=== PATIENT | female | born 1980 | race African-American/Black ===

== ENCOUNTER 2016-11-11 09:55 | Inpatient (IN) | payer OTHER ==
[~2016-11-11] VITALS: Ht 157.5 cm; Wt 58.2 kg
[2016-11-11 11:34] LABS: ADD UMIC YES; UR ASCORBIC ACID NEGATIVE (NEGATIVE); UR BACTERIA FEW /HPF (NONE SEEN); UR BILIRUBIN (Dip) NEGATIVE (NEGATIVE); UR BLOOD (Dip) 3+ mg/dL (NEGATIVE); UR CLARITY CLEAR (CLEAR); UR COLOR COLORLESS (YELLOW); UR GLUCOSE (Dip) NEGATIVE (NEGATIVE); UR KETONES (Dip) TRACE mg/dL (NEGATIVE); UR LEUKOCYTE ESTERASE (Dip) NEGATIVE Leu/ul (NEGATIVE); UR NITRITE (Dip) NEGATIVE (NEGATIVE); UR RBC 2 /HPF (0-5); UR SPECIFIC GRAVITY (Dip) 1.003 (1.003-1.030); UR TOTAL PROTEIN (Dip) NEGATIVE (NEGATIVE); UR UROBILINOGEN (Dip) NEGATIVE (NEGATIVE)
--- NOTE | 2016-11-11 11:40 | RADRPT ---
PROCEDURE: OBSTETRICAL ULTRASOUND WITH ENDOVAGINAL IMAGES CLINICAL INDICATION: Vaginal Bleed () TECHNIQUE: Multiple sonographic images of the pelvis were obtained utilizing a transabdominal and endovaginal technique. The images were reviewed on a PACS workstation. COMPARISON: None. LMP: 10/07/2016 FINDINGS: The uterus measures 15.9 x 10.6 x 12.0 cm. A small cystic lesion measuring up to 1.1 cm in diameter is identified in the endometrium at the lev el of the fundal apex which may be a gestational sac. No yolk sac or pole is identified withi n it. Bilateral ovaries are not visualized. There are no abnormal adnexal masses. No significant pelvic free fluid is identified. IMPRESSION: A possible intrauterine gestational sac is identified without a yolk sac or pole. Findings may be due to an early intrauterine although an ectopic cannot be entirely exclu ded. Short-term follow-up ultrasound and serial Beta HCG measurements are recommended for further e valuation. Bilateral ovaries are not visualized. There are no abnormal adnexal masses. RPTAT: EE Physician Omkar Date Time Electronically viewed and signed by Physician Omkar on 11/11/2016 11:40 /
[2016-11-11 11:44] LABS: ADD SCAN DIFF NO
[2016-11-11 11:58] LABS: BASOPHILS % 0.3 % (0.0-2.0); EOSINOPHILS # 0.1 10^3/ul (0.0-0.5); EOSINOPHILS % 0.8 % (0.0-7.0); HEMATOCRIT 37.2 % (37.0-47.0); HEMOGLOBIN 12.3 g/dl (12.0-16.0); LYMPHOCYTES # 3.5 10^3/ul (0.8-2.9); LYMPHOCYTES % 46.4 % (15.0-51.0); MEAN CORPUSCULAR HEMOGLOBIN 28.6 pg (29.0-33.0); MEAN CORPUSCULAR HGB CONC 33.1 g/dl (32.0-37.0); MEAN CORPUSCULAR VOLUME 86.5 fl (82.0-101.0); MEAN PLATELET VOLUME 10.3 fl (7.4-10.4); MONOCYTE # 0.5 10^3/ul (0.3-0.9); MONOCYTES % 6.8 % (0.0-11.0); NEUTROPHIL # 3.4 10^3/ul (1.6-7.5); NEUTROPHILS % 45.4 % (39.0-77.0); PLATELET COUNT 275 10^3/UL (140-415); WHITE BLOOD COUNT 7.5 10^3/ul (4.8-10.8)
--- NOTE | 2016-11-11 13:43 | ERD ---
ER Documentation Chief Complaint Date/Time DATE: 11/11/16 TIME: 13:41 Chief Complaint has had vag bleeding last menstral over a month + HPI This is a 36 year old female with history of hypertension presenting to the emergency department complaining heavy vaginal bleeding for one hour however it has subsided.Patient states her last menstrual period was approximately the end of July, she was told last week by her primary care physician that she had a positive test. Patient denies fevers, pelvic pain, dysuria. Patient states that she was given prescription to change her hypertensive medication however she has not taken the medication yet ROS All systems reviewed and are negative except as per history of present illness. Allergies Allergies: Coded Allergies: No Known Allergy (Unverified , 11/11/16) PMhx/Soc Medical and Surgical Hx: pt denies Medical Hx, pt denies Surgical Hx Hx Alcohol Use: No Hx Substance Use: No Hx Tobacco Use: No Smoking Status: Never smoker Physical Exam Vitals Vital Signs Date Time Temp Pulse Resp B/P Pulse Ox O2 Delivery O2 Flow Rate FiO2 11/11/16 09:57 98.0 81 18 178/99 99 Physical Exam Const: WD/WN, NAD Head: Atraumatic Eyes: Normal Conjunctiva ENT: Normal External Ears, Nose and Mouth. Neck: Full range of motion..~ No meningismus. Resp: Clear to auscultation bilaterally Cardio: Regular rate and rhythm, no murmurs Abd: Soft, mildly tender in the pelvic region. Did not feel uterus Skin: No petechiae or rashes Back: No midline or flank tenderness Ext: No cyanosis, or edema Neur: Awake and alert Psych: Normal Mood and Affect Result Diagram: 11/11/16 1140 Results 24 hrs Laboratory Tests Test 11/11/16 10:46 11/11/16 11:00 11/11/16 11:40 Beta HCG, Quantitative 39242.0mIU/ml Urine Color COLORLESS Urine Clarity CLEAR Urine pH 6.0 Urine Specific Clarissa 1.003 Urine Ketones TRACEmg/dL Urine Nitrite NEGATIVEmg/dL Urine Bilirubin NEGATIVEmg/dL Urine Urobilinogen NEGATIVEmg/dL Urine Leukocyte Esterase NEGATIVELeu/ul Urine Microscopic RBC 2/HPF Urine Microscopic WBC 0/HPF Urine Bacteria FEW/HPF Urine Hemoglobin 3+mg/dL Urine Glucose NEGATIVEmg/dL Urine Total Protein NEGATIVEmg/dl White Blood Count 7.510^3/ul Red Blood Count 4.3010^6/ul Hemoglobin 12.3g/dl Hematocrit 37.2% Mean Corpuscular Volume 86.5fl Mean Corpuscular Hemoglobin 28.6pg Mean Corpuscular Hemoglobin Concent 33.1g/dl Red Cell Distribution Width 14.0% Platelet Count 61903^3/UL Mean Platelet Volume 10.3fl Neutrophils % 45.4% Lymphocytes % 46.4% Monocytes % 6.8% Eosinophils % 0.8% Basophils % 0.3% Nucleated Red Blood Cells % 0.0/100WBC Neutrophils # 3.410^3/ul Lymphocytes # 3.510^3/ul Monocytes # 0.510^3/ul Eosinophils # 0.110^3/ul Basophils # 0.010^3/ul Nucleated Red Blood Cells # 0.010^3/ul Current Medications Medications (Trade) Dose Ordered Sig/Amber Route PRN Reason Start Time Stop Time Status Last Admin Dose Admin Lactated Ringer's (Lr) 1,000 ml @ 125 mls/hr Q8H IV 11/11/16 16:06 Procedures/MDM This is a 36 year old female with history of hypertension presenting to the emergency department complaining heavy vaginal bleeding for one hour however it has subsided.Patient states her last menstrual period was approximately the end of July, she was told last week by her primary care physician that she had a positive test. In the ED, blood work, UA and OB ultrasound was obtained. OB ultrasound was done, radiologist stated: A possible intrauterine gestational sac is identified without a yolk sac or pole. Findings may be due to an early intrauterine although an ectopic cannot be entirely excluded. Short-term follow-up ultrasound and serial Beta HCG measurements are recommended for further evaluation. Bilateral ovaries are not visualized. There are no abnormal adnexal masses. Beta hCG was 14,450 above the hCG discriminatory zone without yolk sac or zone therefore I have consulted the OB laborist . who has came in to evaluate the patient. She will be admitted for further evaluation and management. She is stable for transfer to admission floor. Departure Diagnosis: Primary Impression: Vaginal bleeding in patient at less than 20 weeks gestation Condition: Serious NORBERTO ROBIN PA-C Nov 11, 2016 13:43
--- NOTE | 2016-11-11 16:22 | HP ---
Date/Time of Note Date/Time of Note DATE: 11/11/16 TIME: 16:22 Assessment/Plan VTE Prophylaxis VTE Prophylaxis Intervention: ambulation Assessment/Plan Assessment/Plan Vaginal bleeding early Small gestational sac inside the uterus with multiple fibroids No pelvic mass no adnexal mass Patient hemodynamically stable Likely threatened , cannot rule out ectopic Finding discussed with the patient Recommended the patient to be admitted in the hospital for observation as well as repeat hCG in 24 and 48 hours. If repeat ECG shows sudden drop more than 52 % correlates more with SAB otherwise repeat ultrasound after 48 hours with close observation cannot rule out ectopic versus intrauterine . Patient currently hemodynamically stable Plan has been discussed with the patient She denied any pelvic pain or pressure however reports some trouble holding her urine that contributed to large symptomatic fibroid uterus. Patient was unaware of this finding. This has been communicated with the patient and advised the patient to have an evaluation after discharge from the hospital as well as prior to next to eliminate any chance her risk for miscarriage or other complications during next . Patient verbalized understanding. Also explained that the plan of care will become indicated after her next lab with the new OB hospitalist physician. We will admit the patient to [facility] unit Observe closely HPI/ROS Admit Date/Time Admit Date/Time 11/11/2016 Hx of Present Illness 26-year-old with new episode of presented to the emergency room with complaint of vaginal bleeding since this morning. LMP October 07, 2016. Patient reports has regular cycles every 21 day. was planned. Patient denies any abdominal pain. Patient reports that she had heavy bleeding but currently subsided and decreased. Reports that she was seen in PCP office last week when she missed her cycle and she had a urine and serum test I was called from the office that it showed positive for . PCP Dr. Burnette. Currently patient denies any symptoms except light bleeding that currently resolved. She had a pelvic ultrasound that showed evidence of small intrauterine sac with no yolk sac or pole questionable for IUP. Cannot rule out ectopic. Patient never had any ultrasound after positive test. She reports that had a history of chronic hypertension which was on amlodipine and switched to another medication. Patient self stopped her antihypertensive medication. Denies any pelvic pain, pressure. Her hCG level in the emergency room today is 14,000. Ultrasound did not show any evidence of free fluid in the pelvis or adnexal mass, and consistent with a small gestational sac without pole or yolk sac. ROS Subjective hx not possible: other (Anxious. Reports anxiety history) Constitutional: no complaints Eyes: no complaints ENT: no complaints Respiratory: no complaints Cardiovascular: no complaints Gastrointestinal: blood Genitourinary: bleeding Musculoskeletal: no complaints Skin: no complaints Neurologic: no complaints Endocrine: no complaints Lymphatic: no complaints Psychological: no complaints Immunologic: no complaints PMH/Family/Social Past Medical History History of hypertension. Was on amlodipine prior to switch to another antihypertensive medication. Patient did not take her antihypertensive medication today. History of anxiety disorder. Past Surgical History None Social History Type 2 diabetes in mother Alcohol Use: other (Stopped when she noted that she is .) Smoking Status: Never smoker Drug Use: none Exam/Review of Systems Vital Signs Vitals Vital Signs Date Time Temp Pulse Resp B/P Pulse Ox O2 Delivery O2 Flow Rate FiO2 11/11/16 09:57 98.0 81 18 178/99 99 Exam Constitutional: alert, oriented, other (Anxious), well developed Psych: anxiety, nl mood/affect Head: atraumatic, normocephalic Eyes: EOMI, nl conjunctiva, nl lids ENMT: nl external ears & nose, nl lips & teeth Neck: supple Respiratory: clear to auscultation, normal air movement Cardiovascular: nl pulses, regular rate and rhythm Gastrointestinal: mass, other (Large nontender mass firm in the midline up to 1 cm above the umbilicus consistent with likely fibroid uterus palpable.. Abdominal distention in the lower abdomen related to pelvic mass noted.), soft Genitourinary - Female: other, uterus (Uterus is enlarged and firm midline in the pelvis up to 1 similar above the umbilicus consistent with fibroid uterus. Exam is limited due to large fibroid uterus. Adnexa are not palpable. No tenderness in palpation of lower abdomen or adnexal fornix cyst. Cervix displaced by vaginal exam sharply anteriorly due to large posterior fibroid. A large mass in the cul-de-sac firm with smooth surface consistent with posterior fibroid palpable. It pushed the cervix anteriorly sharply. Speculum examination: Vagina normal. No blood in the vault. Difficulty visualization of the cervix due to displacement of the cervix sharply anteriorly due to large posterior fibroid noted. Cervix palpable in vaginal examination and consistency normal without any lesion. No bleeding in palpation of the cervix noted) Musculoskeletal: nl extremities to inspection, nl gait and stance Extremities: normal pulses Neurological: [employer]RO[employer] II-XII intact, nl mental status, nl speech, nl strength Skin: nl turgor Labs Result Diagram: 11/11/16 1140 Medications Medications Current Medications Lactated Ringer's (Lr) 1,000 ml @ 125 mls/hr Q8H IV ; Start 11/11/16 at 16:06 Procedures Procedures PROCEDURE: OBSTETRICAL ULTRASOUND WITH ENDOVAGINAL IMAGES CLINICAL INDICATION: Vaginal Bleed () TECHNIQUE: Multiple sonographic images of the pelvis were obtained utilizing a transabdominal and endovaginal technique. The images were reviewed on a PACS workstation. COMPARISON: None. LMP: 10/07/2016 FINDINGS: The uterus measures 15.9 x 10.6 x 12.0 cm. A small cystic lesion measuring up to 1.1 cm in diameter is identified in the endometrium at the level of the fundal apex which may be a gestational sac. No yolk sac or pole is identified within it. Bilateral ovaries are not visualized. There are no abnormal adnexal masses. No significant pelvic free fluid is identified. IMPRESSION: A possible intrauterine gestational sac is identified without a yolk sac or pole. Findings may be due to an early intrauterine although an ectopic cannot be entirely excluded. Short-term follow-up ultrasound and serial Beta HCG measurements are recommended for further evaluation. Bilateral ovaries are not visualized. There are no abnormal adnexal masses. RPTAT: YEHUDA RHODES MD Nov 11, 2016 16:22
[2016-11-11 17:26] LABS: ADD SCAN DIFF NO
[2016-11-11 17:30] LABS: BASOPHILS % 0.3 % (0.0-2.0); EOSINOPHILS % 0.6 % (0.0-7.0); HEMOGLOBIN 12.4 g/dl (12.0-16.0); LYMPHOCYTES # 2.7 10^3/ul (0.8-2.9); LYMPHOCYTES % 38.8 % (15.0-51.0); MEAN CORPUSCULAR HEMOGLOBIN 28.6 pg (29.0-33.0); MEAN CORPUSCULAR HGB CONC 33.5 g/dl (32.0-37.0); MEAN CORPUSCULAR VOLUME 85.5 fl (82.0-101.0); MEAN PLATELET VOLUME 11.2 fl (7.4-10.4); MONOCYTE # 0.7 10^3/ul (0.3-0.9); MONOCYTES % 9.8 % (0.0-11.0); NEUTROPHIL # 3.5 10^3/ul (1.6-7.5); NEUTROPHILS % 50.4 % (39.0-77.0); PLATELET COUNT 246 10^3/UL (140-415); RED BLOOD COUNT 4.33 10^6/ul (4.20-5.40); RED CELL DISTRIBUTION WIDTH 13.8 % (11.5-14.5)
[2016-11-11] MEDS ORDERED: AMLO-147 PO (17:33)
[2016-11-11] MEDS: LACTATED RINGER'S 1,000 ML IV SCH (18:01)
[2016-11-11 21:52] VITALS: PULSE 77
[2016-11-11] MEDS ORDERED: LABETALOL HCL 20MG INJ IV ONE ×2 (22:00→23:30)
[2016-11-11 23:02] VITALS: Ht 157.5 cm; Wt 58.2 kg
[2016-11-11] MEDS ORDERED: LABETALOL 200 MG TAB PO ONE (23:30)
[2016-11-12] MEDS: LACTATED RINGER'S 1,000 ML IV SCH ×2 (00:10→09:27)
[2016-11-12 00:53] VITALS: BP 136/84; RESP 20
[2016-11-12 08:47] VITALS: BP 167/115; RESP 19
[2016-11-12] MEDS ORDERED: LABETALOL 100 MG TAB PO SCH (09:00)
--- NOTE | 2016-11-12 17:24 | DS ---
Date/Time of Note Date/Time of Note DATE: 11/12/16 TIME: 17:08 Discharge Summary Admission/Discharge Info Admit Date/Time November 12, 2006 Discharge summary This is a 36 year old female with history of hypertension presenting to the emergency department 2 day ago complaining of heavy vaginal bleeding for one hour however it has subsided. On that day her beta-hCG level was 14,000 and ultrasound study showed uterus to be enlarged with multiple fibroid tumor .A small cystic structure; possible intra-uterine gestational sac was identified without a yolk sac or pole suggesting possible early intrauterine . The suspicion of ectopic was entertained and she was supposed to go home and return in 2 days for repeat beta-hCG and pelvic ultrasound to rule out versus ectopic. Laboratory Tests Test 11/12/16 11:25 Beta HCG, Quantitative 03229.0mIU/ml Current Medications Medications (Trade) Dose Ordered Sig/Amber Route PRN Reason Start Time Stop Time Status Last Admin Dose Admin Lactated Ringer's (Lr) 1,000 ml @ 125 mls/hr Q8H IV 11/11/16 16:06 11/12/16 14:34 DC 11/12/16 09:27 Labetalol HCl (Labetalol) 10 mg ONCE ONCE IV 11/11/16 22:00 11/11/16 22:01 DC 11/11/16 21:46 Labetalol HCl (Normodyne) 100 mg BID PO 11/12/16 09:00 11/12/16 09:26 Labetalol HCl (Labetalol) 10 mg ONCE ONCE IV 11/11/16 23:30 11/11/16 23:31 Cancel Labetalol HCl (Normodyne) 200 mg ONCE ONCE PO 11/11/16 23:30 11/11/16 23:31 DC 11/11/16 23:27 Radiologist ,s opinion: Findings may be due to an early intrauterine although an ectopic cannot be entirely excluded. Short- term follow-up ultrasound and serial Beta HCG measurements are recommended for further evaluation. Bilateral ovaries are not visualized. There are no abnormal adnexal masses. Discharge Date/Time Today she does not have much of a vaginal bleeding and on examination abdomen is soft there is firm mass on the uterus which appears to be a fibroid tumor not tender no heart tone her chest is clear to auscultation her precaution abdomen examination is soft on pelvic examination she does have a slight bleeding but the cervix is clean uterus and cervix were packed inside the pelvic cavity from solid tumor which appears to be a fibroid Her beta-hCG report today 16,000 slightly elevated however it is not adequate for final diagnosis After detailed explaining to the patient about her condition and the decision was made to discharge her and have her beta-hCG and ultrasound to be repeated in 2 days to make a decision regarding final diagnosis Consults Before discharge a note was given to the patient to be used when she returns to the emergency room in 2 days for repeat of ultrasound and beta-hCG. Patient understand and agree with all of these arrangement and will do the follow-up End of dictation Hospital Course After discussing the patient regarding her condition and giving a note for her future return to emergency room she was discharged home in stable condition Home Meds Reported Medications Amlodipine Besylate* (Amlodipine Besylate*) 10 Mg Tablet, 10 MG PO DAILY, #30 TAB 11/11/16 Primary Care Provider Robert Burnette MD Pending Labs Laboratory Tests Test 11/12/16 11:25 Beta HCG, Quantitative 50382.0mIU/ml ERNST MYERS MD Nov 12, 2016 17:19
== END 2016-11-12 17:10 | disposition home or self-care (01) | DRG 778 ==
LOC: FTE 09:55 → MS1 15:42
PROVIDERS: ADMIT Obstetrics & Gynecology Obstetrics; ATTEND Obstetrics & Gynecology Obstetrics
DX: O20.0 Threatened abortion (principal); O00.90 Unspecified ectopic pregnancy without intrauterine pregnancy; O10.912 Unspecified pre-existing hypertension complicating pregnancy, second trimester; D25.9 Leiomyoma of uterus, unspecified; O34.12 Maternal care for benign tumor of corpus uteri, second trimester; Z3A.00 Weeks of gestation of pregnancy not specified
CPT/HCPCS: 36415; 76801; 76817; 81001; 84702; 85025; 86850; 86900; 86901; 96361; 96374; J7120